=== PATIENT | female | born 1990 | race African-American/Black ===

== ENCOUNTER 2017-07-21 20:54 | Emergency (ER) | payer MEDICAID ==
[~2017-07-21] VITALS: Ht 172.7 cm; Wt 81.6 kg
[~2017-07-21 20:54] MED LIST: BACTRIM DS TAB1 EAC1 ORAL; FAMOTIDINE20 MG ORAL; FERROUS SULFAT325 MG ORAL; KEFLEX500 MG ORAL; LACTULOSE20 GM/301 ORAL; NKM; ONDANSETRON ODT4 MG PO; SULFAMETHOXAZO480 ML ORAL; TRAMADOL HCL50 MG ORAL; ZOFRAN ODT4 MG ORAL
[2017-07-21 21:48] LABS: APPEARANCE,URINE SLIGHTLY CLOUDY; KETONES,URINE NEGATIVE (NEGATIVE); LEUKOCYTE ESTERASE ,URINE 3+ (NEGATIVE); NITRITE,URINE NEGATIVE (NEGATIVE); PH,URINE 8 (4.5-8.0); PROTEIN,URINE 2+ (NEGATIVE); UROBILINOGEN,URINE 1 MG/DL (0.0-1.0)
[2017-07-21 22:15] LABS: RBC,URINE 0-2 /HPF (0 - 2)
[2017-07-21 22:16] LABS: BACTERIA,URINE FEW /HPF; SQUAMOUS EPITHELIAL CELL,UR FEW /LPF (NONE/OCC)
[2017-07-21] MEDS ORDERED: TYLENOL EXTRA500 MG ORAL (22:20)
[2017-07-21] MEDS ORDERED: KEFLEX500 MG ORAL (22:20)
[2017-07-21 22:27] VITALS: BP 120/77
--- NOTE | 2017-07-23 09:23 | Emergency Room Report ---
History of Present Illness General Chief Complaint: Pain Source: Patient Present Illness HPI 27-year-old female presents to ED complaining of left flank pain times one day. Patient states pain is sharp, 710, nonradiating. Patient is also noting dysuria. Patient states she might have a UTI. Has had similar presentation before. Denies abdominal pain nausea or vomiting. Denies chest pain or shortness of breath. No other aggravating relieving factors. Denies any other associated symptoms Allergies: Coded Allergies: No Known Allergies (Unverified , 11/16/12) Patient History Past Medical History: none Past Surgical History: none Pertinent Family History: none Social History: Denies: smoking, alcohol use, drug use Last Menstrual Period: Jul Now: No Immunizations: UTD Reviewed Nursing Documentation: PMH: Agreed, PSxH: Agreed Nursing Documentation-PMH Past Medical History: No Stated History Review of Systems All Other Systems: negative except mentioned in HPI Physical Exam Vital Signs Date Time Temp Pulse Resp B/P (MAP) Pulse Ox O2 Delivery O2 Flow Rate FiO2 07/21/17 21:32 98.4 78 16 120/77 100 Room Air Sp02 EP Interpretation: reviewed, normal General Appearance: no apparent distress, alert, GCS 15, non-toxic Head: normocephalic, atraumatic Eyes: bilateral eye normal inspection, bilateral eye PERRL ENT: hearing grossly normal, normal pharynx, no angioedema, normal voice Neck: full range of motion, supple/symm/no masses Respiratory: chest non-tender, lungs clear, normal breath sounds, speaking full sentences Cardiovascular #1: regular rate, rhythm, no edema Cardiovascular #2: 2+ carotid (R), 2+ carotid (L), 2+ radial (R), 2+ radial (L) , 2+ dorsalis pedis (R), 2+ dorsalis pedis (L) Gastrointestinal: normal bowel sounds, non tender, soft, non-distended, no guarding, no rebound Rectal: deferred Genitourinary: normal inspection, CVA tenderness (L) Musculoskeletal: back normal, gait/station normal, normal range of motion, non- tender Neurologic: alert, oriented x3, responsive, motor strength/tone normal, sensory intact, speech normal Psychiatric: judgement/insight normal, memory normal, mood/affect normal, no suicidal/homicidal ideation Reflexes: 3+ bicep (R), 3+ bicep (L), 3+ tricep (R), 3+ tricep (L), 3+ knee (R) , 3+ knee (L) Skin: normal color, no rash, warm/dry, well hydrated Lymphatic: no adenopathy Medical Decision Making Diagnostic Impression: Primary Impression: UTI (lower urinary tract infection) ER Course Hospital Course 27-year-old female presents to ED complaining of dysuria with flank pain Differential diagnoses include: UTI, cystitis, pyelonephritis Clinical course Patient placed on stretcher. After initial history and physical I ordered UA, urine . UA + bacteria. we will treat as UTI Diagnosis - UTI Stable and discharged home with prescriptions for Rx keflex, tylenol. Instructed to followup with PMD. Return to ED if symptoms recur or worsen Labs Test 07/21/17 21:28 Urine Color Pale yellow Urine Appearance Slightly cloudy Urine pH 8 (4.5-8.0) Urine Specific [place] 1.010 (1.005-1.035) Urine Protein 2+ (NEGATIVE) Urine Glucose (UA) Negative (NEGATIVE) Urine Ketones Negative (NEGATIVE) Urine Occult Blood 1+ (NEGATIVE) Urine Nitrite Negative (NEGATIVE) Urine Bilirubin Negative (NEGATIVE) Urine Urobilinogen 1 MG/DL (0.0-1.0) Urine Leukocyte Esterase 3+ (NEGATIVE) Urine RBC 0-2 /HPF (0 - 2) Urine WBC 2-4 /HPF (0 - 2) Urine Squamous Epithelial Cells Few /LPF (NONE/OCC) Urine Bacteria Few /HPF (NONE) Urine HCG, Qualitative Negative Last Vital Signs Date Time Temp Pulse Resp B/P (MAP) Pulse Ox O2 Delivery O2 Flow Rate FiO2 07/21/17 22:27 98.4 78 16 120/77 100 Room Air Status: improved Disposition: HOME, SELF-CARE Condition: Stable Scripts Acetaminophen* (TYLENOL EXTRA STRENGTH*) 500 Mg Tablet 500 MG ORAL Q8H Y for Prn Headache/Temp > 101, #30 TAB 0 Refills Prov: DIANDRA BAKER M.D. 07/21/17 Cephalexin* (KEFLEX*) 500 Mg Capsule 500 MG ORAL Q6H, #28 CAP 0 Refills Prov: DIANDRA BAKER M.D. 07/21/17 Referrals: [facility]ERR[facility] (PCP) Patient Instructions: Dysuria DIANDRA BAKER M.D. Jul 23, 2017 09:23
== END 2017-07-21 22:28 | disposition home or self-care (01) ==
LOC: EMR 21:22
DX: N39.0 Urinary tract infection, site not specified (principal); R30.0 Dysuria
CPT/HCPCS: 81003; 81025; 99283

== ENCOUNTER 2017-09-20 13:47 | Emergency (ER) | payer MEDICAID ==
[~2017-09-20] VITALS: Ht 172.7 cm; Wt 81.6 kg
[~2017-09-20 13:47] MED LIST changes: +TYLENOL EXTRA500 MG ORAL
[2017-09-20 13:56] VITALS: BP 113/72
--- NOTE | 2017-09-20 14:25 | Emergency Room Report ---
History of Present Illness General Chief Complaint: Vaginal Source: Patient Present Illness [facility] The patient is a 27 old female at approximately 8 weeks gestation presenting for bowel pain and vaginal bleeding for the past 5 days. She states that she has been spotting. And has had mid lower abdominal pain described as a 7/10 dull ache. Does not radiate. No known provoking relieving factors. The patient admits to a history of significant anemia and states that it is usually around 6. She does not take her iron supplements as was prescribed. She does admit to dysuria and increased urinary frequency. She denies any other symptoms including nausea, vomiting, fever, chills, vaginal discharge, back pain Allergies: Coded Allergies: No Known Allergies (Unverified , 11/16/12) Patient History Past Medical History: see triage record Pertinent Family History: none Last Menstrual Period: 07/26/17 Now: Yes - ~ 8 weeks : 5 Para: 3 Reviewed Nursing Documentation: PMH: Agreed, PSxH: Agreed Review of Systems All Other Systems: negative except mentioned in HPI Physical Exam Vital Signs Date Time Temp Pulse Resp B/P (MAP) Pulse Ox O2 Delivery O2 Flow Rate FiO2 09/20/17 13:56 98.1 86 16 113/72 100 Room Air Sp02 EP Interpretation: reviewed, normal General Appearance: no apparent distress, alert, GCS 15, non-toxic Head: normocephalic, atraumatic Eyes: bilateral eye normal inspection, bilateral eye PERRL ENT: hearing grossly normal, normal pharynx, no angioedema, normal voice Neck: full range of motion, supple/symm/no masses Respiratory: chest non-tender, lungs clear, normal breath sounds, speaking full sentences Cardiovascular #1: regular rate, rhythm, no edema Gastrointestinal: normal bowel sounds, soft, tenderness - suprapubic Rectal: deferred Genitourinary: normal inspection, no CVA tenderness Musculoskeletal: back normal, gait/station normal, normal range of motion, non- tender Neurologic: alert, oriented x3, responsive, motor strength/tone normal, sensory intact, speech normal Psychiatric: judgement/insight normal, memory normal, mood/affect normal, no suicidal/homicidal ideation Skin: normal color, no rash, warm/dry, well hydrated Lymphatic: no adenopathy Medical Decision Making PA Attestation Dr. Prieto is my supervising physician. Patient management was discussed with my supervising physician Diagnostic Impression: Primary Impression: Qualified Codes: Z3A.08 - 8 weeks gestation of Additional Impression: Urinary tract infection Qualified Codes: N30.00 - Acute cystitis without hematuria ER Course The patient is a 27 old female at approximately 8 weeks gestation presenting for bowel pain and vaginal bleeding Differential diagnoses considered include but not limited to Early , threatened , incomplete , ectopic , hemorrhagic cyst, UTI, BV PE: afebrile. NAD Skin is warm and dry. No pallor. Abdomen is soft. There is tenderness to palpation over suprapubic region only. Normal bowel sounds. Nondistended Hemoglobin significantly low at 6.8. Pt states this is normal for her. CMP unremarkable beta-hCG WNL for gestational age UA shows WBCs with few bacteria OB US: IUP with good heart tones per tech. Approximately 8 weeks gestation The patient was informed of these results and will be discharged. She will follow up with her OB as soon as possible. She was told she needs to see her PMD [facility] for anemia. She refuses treatment for this. She is given keflex for presumed UTI. ER precautions are given Laboratory Tests Test 09/20/17 14:15 09/20/17 14:18 Urine Color Pale yellow Urine Appearance Clear Urine pH 8 (4.5-8.0) Urine Specific [place] 1.010 (1.005-1.035) Urine Protein Negative (NEGATIVE) Urine Glucose (UA) Negative (NEGATIVE) Urine Ketones Negative (NEGATIVE) Urine Occult Blood Negative (NEGATIVE) Urine Nitrite Negative (NEGATIVE) Urine Bilirubin Negative (NEGATIVE) Urine Urobilinogen 1 MG/DL (0.0-1.0) H Urine Leukocyte Esterase 2+ (NEGATIVE) H Urine RBC 0-2 /HPF (0 - 2) Urine WBC 10-15 /HPF (0 - 2) H Urine Squamous Epithelial Cells Few /LPF (NONE/OCC) Urine Bacteria Few /HPF (NONE) White Blood Count 4.5 K/UL (4.8-10.8) L Red Blood Count 3.81 M/UL (4.20-5.40) L Hemoglobin 6.8 G/DL (12.0-16.0) *L Hematocrit 23.2 % (37.0-47.0) L Mean Corpuscular Volume 61 FL (80-99) L Mean Corpuscular Hemoglobin 17.8 PG (27.0-31.0) L Mean Corpuscular Hemoglobin Concent 29.2 G/DL (32.0-36.0) L Red Cell Distribution Width 19.3 % (11.6-14.8) H Platelet Count 256 K/UL (150-450) Mean Platelet Volume 6.5 FL (6.5-10.1) Neutrophils (%) (Auto) % (45.0-75.0) Lymphocytes (%) (Auto) % (20.0-45.0) Monocytes (%) (Auto) % (1.0-10.0) Eosinophils (%) (Auto) % (0.0-3.0) Basophils (%) (Auto) % (0.0-2.0) Differential Total Cells Counted 100 Neutrophils % (Manual) 49 % (45-75) Lymphocytes % (Manual) 40 % (20-45) Monocytes % (Manual) 5 % (1-10) Eosinophils % (Manual) 6 % (0-3) H Basophils % (Manual) 0 % (0-2) Band Neutrophils 0 % (0-8) Platelet Estimate Adequate Platelet Morphology Normal Hypochromasia 3+ Poikilocytosis 2+ Anisocytosis 4+ Microcytosis 3+ Tear Drop Cells 1+ Ovalocytes 1+ Schistocytes 1+ Prothrombin Time 10.6 SEC (9.30-11.50) Prothrombin Time INR 1.0 (0.9-1.1) PTT 25 SEC (23-33) Sodium Level 138 MMOL/L (136-145) Potassium Level 3.6 MMOL/L (3.5-5.1) Chloride Level 104 MMOL/L (98-107) Carbon Dioxide Level 26 MMOL/L (21-32) Anion Gap 9 mmol/L (5-15) Blood Urea Nitrogen 6 mg/dL (7-18) L Creatinine 0.5 MG/DL (0.55-1.30) L Estimate Glomerular Filtration Rate > 60 mL/min (>60) Glucose Level 94 MG/DL (74-106) Calcium Level 8.6 MG/DL (8.5-10.1) Total Bilirubin 0.3 MG/DL (0.2-1.0) Aspartate Amino Transferase (AST) 14 U/L (15-37) L Alanine Aminotransferase (ALT) 14 U/L (12-78) Alkaline Phosphatase 45 U/L (46-116) L Total Protein 7.5 G/DL (6.4-8.2) Albumin 3.6 G/DL (3.4-5.0) Globulin 3.9 g/dL Albumin/Globulin Ratio 0.9 (1.0-2.7) L Lipase 135 U/L (73-393) Human Chorionic Gonadotropin, Quant 32822 mIU/mL (1-6) H Lab Results Impression Hemoglobin significantly low at 6.8. Pt states this is normal for her. CMP unremarkable beta-hCG WNL for gestational age UA shows WBCs with few bacteria CT/MRI/US Diagnostic Results CT/MRI/US Diagnostic Results : Imaging Test Ordered: OB US Impression OB US: IUP with good heart tones per tech. Approximately 8 weeks gestation Last Vital Signs Date Time Temp Pulse Resp B/P (MAP) Pulse Ox O2 Delivery O2 Flow Rate FiO2 09/20/17 13:56 98.1 86 16 113/72 100 Room Air Status: improved Disposition: HOME, SELF-CARE Condition: Improved Scripts Cephalexin* (KEFLEX*) 500 Mg Capsule 500 MG ORAL EVERY 12 HOURS, #14 CAP 0 Refills Prov: KARISSA QUILES 09/20/17 KARISSA QUILES Sep 20, 2017 14:25
[2017-09-20 14:48] LABS: APPEARANCE,URINE CLEAR; KETONES,URINE NEGATIVE (NEGATIVE); LEUKOCYTE ESTERASE ,URINE 2+ (NEGATIVE); NITRITE,URINE NEGATIVE (NEGATIVE); PH,URINE 8 (4.5-8.0); PROTEIN,URINE NEGATIVE (NEGATIVE); UROBILINOGEN,URINE 1 MG/DL (0.0-1.0)
[2017-09-20 14:52] LABS: MEAN CORPUSCULAR HEMOGLOBIN 17.8 PG (27.0-31.0); MEAN CORPUSCULAR HGB CONC 29.2 G/DL (32.0-36.0); MEAN CORPUSCULAR VOLUME 61 FL (80-99); MEAN PLATELET VOLUME 6.5 FL (6.5-10.1); PLATELET COUNT 256 K/UL (150-450); RED BLOOD COUNT 3.81 M/UL (4.20-5.40); RED CELL DISTRIBUTION WIDTH 19.3 % (11.6-14.8); WHITE BLOOD COUNT 4.5 K/UL (4.8-10.8)
[2017-09-20 14:58] LABS: ANION GAP 9 mmol/L (5-15); CALCIUM 8.6 MG/DL (8.5-10.1); CARBON DIOXIDE 26 MMOL/L (21-32); CHLORIDE 104 MMOL/L (98-107); CREATININE 0.5 MG/DL (0.55-1.30); GLOMERULAR FILTRATION RATE > 60 mL/min (>60); POTASSIUM 3.6 MMOL/L (3.5-5.1); SODIUM 138 MMOL/L (136-145)
[2017-09-20 15:02] LABS: ALANINE AMINOTRANSFERASE 14 U/L (12-78); ALBUMIN/GLOBULIN RATIO 0.9 (1.0-2.7); ASPARTATE AMINO TRANSFERASE 14 U/L (15-37); LIPASE 135 U/L (73-393); TOTAL PROTEIN 7.5 G/DL (6.4-8.2)
[2017-09-20 15:02] LABS: BACTERIA,URINE FEW /HPF; RBC,URINE 0-2 /HPF (0 - 2); SQUAMOUS EPITHELIAL CELL,UR FEW /LPF (NONE/OCC)
[2017-09-20 15:05] LABS: PROTHROMBIN TIME 10.6 SEC (9.30-11.50)
[2017-09-20 15:51] LABS: EOSINOPHILS % (MANUAL) 6 % (0-3); LYMPHOCYTES % (MANUAL) 40 % (20-45); NEUTROPHILS % (MANUAL) 49 % (45-75); PLATELET MORPHOLOGY NORMAL; TOTAL CELLS COUNTED 100
[2017-09-20 15:52] LABS: ANISOCYTOSIS 4+; MICROCYTES 3+
[2017-09-20 15:53] LABS: HYPOCHROMASIA 3+
[2017-09-20 15:54] LABS: OVALOCYTES 1+; SCHISTOCYTES 1+; TEAR DROP CELLS 1+
[2017-09-20 15:56] LABS: BAND NEUTROPHILS % (MANUAL) 0 % (0-8); BASOPHILS % (MANUAL) 0 % (0-2); PLATELET ESTIMATE ADEQUATE; POIKILOCYTOSIS 2+
[2017-09-20] MEDS ORDERED: CEPHALEXIN500 MG ORAL (18:52)
[2017-09-20 19:08] VITALS: BP 112/68
--- NOTE | 2017-09-21 10:43 | Diagnostic Imaging Report ---
Indication:Vaginal bleeding. Pelvic pain Technique: Grayscale and duplex Doppler imaging of the pelvis performed utilizing a transabdominal scan and endovaginal scan. Comparison: None Findings: Single living intrauterine demonstrated. Gestational age estimated at 7 weeks 4 days with heart tones demonstrated. Yolk sac noted. Both ovaries are seen and appear normal. There is dopplerable blood flow within both ovaries. No significant free fluid identified. Impression: Single living intrauterine 7 weeks 4 days gestational age.
== END 2017-09-20 19:08 | disposition home or self-care (01) ==
LOC: EMR 14:45
DX: O23.41 Unspecified infection of urinary tract in pregnancy, first trimester (principal); O20.9 Hemorrhage in early pregnancy, unspecified; Z3A.08 8 weeks gestation of pregnancy; O99.011 Anemia complicating pregnancy, first trimester
CPT/HCPCS: 36415; 76801; 76830; 80053; 81003; 83690; 84702; 85007; 85025; 85610; 85730; 86850; 86900; 86901; 87086; 87181; 96361; 96374; 99284